=== PATIENT | male | born 1980 | race African-American/Black ===

== ENCOUNTER 2021-06-25 17:33 | Emergency (ER) | payer MEDICAID ==
[~2021-06-25] VITALS: Ht 175.3 cm; Wt 82.0 kg
[2021-06-25] MEDS ORDERED: IBUPROFEN 400MG TABLET PO ONE (19:00)
[2021-06-25 19:32] VITALS: BP 130/86
== END 2021-06-25 21:45 | disposition home or self-care (01) ==
LOC: ER 17:33
DX: M54.89 Other dorsalgia (principal); M54.2 Cervicalgia; M41.9 Scoliosis, unspecified; V43.52XA Car driver injured in collision with other type car in traffic accident, initial encounter; Y93.89 Activity, other specified; Y92.488 Other paved roadways as the place of occurrence of the external cause
CPT/HCPCS: 72070; 72100; 99284